=== PATIENT | female | born 1955 | race American Indian/Alaskan Native ===

== ENCOUNTER 2020-05-29 19:14 | Observation (INO) | payer MEDICARE, OTHER ==
--- NOTE | 2020-05-29 20:57 | Emergency Department Report ---
ED Fall HPI - General Chief Complaint: Neuro Symptoms/Deficit Stated Complaint: ALTERED MENTAL STATUS/WEAK Time Seen by Provider: 05/29/20 20:21 Source: patient, EMS Mode of arrival: Stretcher Limitations: No Limitations - History of Present Illness Initial Comments: 64-year-old female the past medical history of lung cancer, COPD, CVA March 2020, diabetes, and hypertension presents to the hospital status post fall. Patient is sleeping but easily arousable and somewhat drowsy however she is oriented to person, place, and year. She states around 2 AM she fell going down the stairs was able to get herself up off the ground. She states she hit her head but denies LOC. Patient lives with her daughter. From reports to EMS that they are concerned because patient is asking repetitive questions. Patient is AO x4 with EMS. Patient complains of some mild neck pain and right hand/wrist pain. She also had 2-3 episodes of vomiting. She denies headache, chest pain, shortness breath, abdominal pain, diarrhea, or dysuria - Related Data Allergies Allergy/AdvReac Type Severity Reaction Status Date / Time Sulfa (Sulfonamide AdvReac Unknown Verified 05/29/20 20:47 Antibiotics) ED Review of Systems ROS: Stated complaint: ALTERED MENTAL STATUS/WEAK Other details as noted in HPI Comment: All other systems reviewed and negative ED Past Medical Hx - Past Medical History Previous Medical History?: Yes Hx Hypertension: Yes Hx CVA: Yes (march 2020) Hx Diabetes: Yes Hx of Cancer: Yes (lung) Hx COPD: Yes - Surgical History Past Surgical History?: Yes Additional Surgical History: renal surgery, cyst removal, hysterectomy. - Social History Smoking Status: Current Every Day Smoker Substance Use Type: None ED Physical Exam - General Limitations: No Limitations - Other Other exam information: General: No acute distress Head: Atraumatic Eyes: normal appearance ENT: Moist mucous membranes Neck: Normal appearance, no midline tenderness Chest: Clear to auscultation bilaterally CV: Regular rate and rhythm Abdomen: Soft, normal bowel sounds, nontender, nondistended, no rebound or guarding Back: Normal inspection Extremity: Swelling to right thumb metacarpal area with tenderness to palpation. Mild swelling to wrist but full range of motion 2+ radial pulse. Mild pain with flexion of right knee without point tenderness or deformity. No pain with movement of all other extremities Neuro: Patient is drowsy but easily arousable O x 3, no facial asymmetry, speech clear, no gross motor sensory deficit Psych: Patient is drowsy states she does not sleep much at night and therefore is sleepy Skin: No rash ED Course Vital Signs 05/29/20 19:41 Temperature 98.2 F Pulse Rate 79 Respiratory 18 Rate Blood Pressure 164/87 [left a5rm] O2 Sat by Pulse 100 Oximetry - Reevaluation(s) Reevaluation #1: 05/30/20 00:16 Patient is ED work-up unremarkable with inspection of right hand fracture. I called daughter Siena Gracia at [phone] (number provided by patient) who expresses concern that patient has had a decline in mobility and mental status x1 day. Daughter did not initially realize that patient had fallen earlier but did see worsening gait. She states that patient at her baseline walks around her house without a walker and intermittently uses a walker or object to balance herself. Today she was completely unsteady and needed total support to ambulate which has been witnessed here in the ED. She also states that her mother's speech is more slow and slurred than normal. She also states that patient has been noncompliant with her medications. Patient apparently underplays her physical complaints and always tells everyone including physicians that she feels fine and is not forthcoming with her medical complaints. Initially thought that patient might be a candidate for discharge however, with this new information I will consult neurology to assess patient. CT does show several old infarcts without acute hemorrhage. Patient might require admission and further neurologic work-up. She is nonfocal on exam. pt has hx of march 2020 and march 2019 but deficits unclear as per daughter - Consultations Consultation #1: 05/30/20 00:[address] Jaffe teleneurologist who states pt does not meet criteria for acute intervention however, patient has multiple chronic infarcts on CT it is unclear if patient had a had an acute event therefore recommends MRI and physical therapy assessment. ED Medical Decision Making - Lab Data Result diagrams: 05/29/20 21:52 05/29/20 21:52 Lab Results 05/29/20 05/29/20 05/29/20 Range/Units 21:25 21:52 21:52 WBC 8.3 (4.5-11.0) K/mm3 RBC 4.42 (3.65-5.03) M/mm3 Hgb 13.5 (10.1-14.3) gm/dl Hct 43.6 H (30.3-42.9) % MCV 99 H (79-97) fl MCH 31 (28-32) pg MCHC 31 (30-34) % RDW 16.4 H (13.2-15.2) % Plt Count 144 (140-440) K/mm3 Lymph % (Auto) Insurance Policy Issue Clerk [place] % (Auto) Insurance Policy Issue Clerk Eos % (Auto) Insurance Policy Issue Clerk Baso % (Auto) Insurance Policy Issue Clerk Lymph # (Auto) Insurance Policy Issue Clerk [place] # (Auto) Insurance Policy Issue Clerk Eos # (Auto) Insurance Policy Issue Clerk Baso # (Auto) Insurance Policy Issue Clerk Seg Neutrophils % Insurance Policy Issue Clerk Seg Neutrophils # Insurance Policy Issue Clerk Sodium 141 (137-145) mmol/L Potassium 4.8 (3.6-5.0) mmol/L Chloride 103.5 (98-107) mmol/L Carbon Dioxide 20 L (22-30) mmol/L Anion Gap 22 mmol/L BUN 17 (7-17) mg/dL Creatinine 0.8 (0.6-1.2) mg/dL Estimated GFR > 60 ml/min BUN/Creatinine Ratio 21 % Glucose 171 H (65-100) mg/dL POC Glucose 186 H (70-105) mg/dL Calcium 9.4 (8.4-10.2) mg/dL Magnesium 1.90 (1.7-2.3) mg/dL Total Bilirubin 0.60 (0.1-1.2) mg/dL AST 24 (5-40) units/L ALT 12 (7-56) units/L Alkaline Phosphatase 86 (35-129) units/L Total Protein 6.9 (6.3-8.2) g/dL Albumin 4.1 (3.9-5) g/dL Albumin/Globulin Ratio 1.5 % Urine Color (Yellow) Urine Turbidity (Clear) Urine pH (5.0-7.0) Ur Specific [place] (1.003-1.030) Urine Protein (Negative) mg/dL Urine Glucose (UA) (Negative) mg/dL Urine Ketones (Negative) mg/dL Urine Blood (Negative) Urine Nitrite (Negative) Urine Bilirubin (Negative) Urine Urobilinogen (<2.0) mg/dL Ur Leukocyte Esterase (Negative) Urine WBC (Auto) (0.0-6.0) /HPF Urine RBC (Auto) (0.0-6.0) /HPF U Epithel Cells (Auto) (0-13.0) /HPF Urine Mucus /HPF 05/29/20 Range/Units 23:02 WBC (4.5-11.0) K/mm3 RBC (3.65-5.03) M/mm3 Hgb (10.1-14.3) gm/dl Hct (30.3-42.9) % MCV (79-97) fl MCH (28-32) pg MCHC (30-34) % RDW (13.2-15.2) % Plt Count (140-440) K/mm3 Lymph % (Auto) [place] % (Auto) Eos % (Auto) Baso % (Auto) Lymph # (Auto) [place] # (Auto) Eos # (Auto) Baso # (Auto) Seg Neutrophils % Seg Neutrophils # Sodium (137-145) mmol/L Potassium (3.6-5.0) mmol/L Chloride (98-107) mmol/L Carbon Dioxide (22-30) mmol/L Anion Gap mmol/L BUN (7-17) mg/dL Creatinine (0.6-1.2) mg/dL Estimated GFR ml/min BUN/Creatinine Ratio % Glucose (65-100) mg/dL POC Glucose (70-105) mg/dL Calcium (8.4-10.2) mg/dL Magnesium (1.7-2.3) mg/dL Total Bilirubin (0.1-1.2) mg/dL AST (5-40) units/L ALT (7-56) units/L Alkaline Phosphatase (35-129) units/L Total Protein (6.3-8.2) g/dL Albumin (3.9-5) g/dL Albumin/Globulin Ratio % Urine Color Yellow (Yellow) Urine Turbidity Clear (Clear) Urine pH 5.0 (5.0-7.0) Ur Specific [place] 1.029 (1.003-1.030) Urine Protein 30 mg/dl (Negative) mg/dL Urine Glucose (UA) 150 (Negative) mg/dL Urine Ketones Neg (Negative) mg/dL Urine Blood Sm (Negative) Urine Nitrite Neg (Negative) Urine Bilirubin Neg (Negative) Urine Urobilinogen 2.0 (<2.0) mg/dL Ur Leukocyte Esterase Neg (Negative) Urine WBC (Auto) 1.0 (0.0-6.0) /HPF Urine RBC (Auto) 2.0 (0.0-6.0) /HPF U Epithel Cells (Auto) 4.0 (0-13.0) /HPF Urine Mucus 2+ /HPF - EKG Data -: EKG Interpreted by [facility] EKG shows normal: sinus rhythm, ST-T waves (normal) Rate: normal - Radiology Data Radiology results: report reviewed CT head/brain wo con INDICATION: Patient had a fall with neck injury. TECHNIQUE: Routine CT head without contrast. All CT scans at this location are performed using CT dose reduction for ALARA by means of automated exposure control. COMPARISON: None. FINDINGS: BRAIN / INTRACRANIAL CONTENTS: Generalized cerebral volume loss with compensatory enlargement of the ventricles and sulci. There are bilateral basal ganglia and external capsule hypodensities measuring up to 1.5 cm adjacent to the left caudate. Findings possibly represent age-indeterminate lacunar type infarcts. Periventricular hypoattenuation suggests sequela of chronic microvascular ischemia. No acute major vascular distribution infarct, intraparenchymal hemorrhage, or parenchymal mass. No extra-axial blood or fluid collection. No evidence of acute obstructive hydrocephalus. ORBITS: No significant abnormality of visualized orbits. SINUSES / MASTOIDS: No significant abnormality of visualized sinuses and mastoid air cells. ADDITIONAL FINDINGS: Mild soft tissue induration adjacent to the left temporal calvarium. No calvarial fracture. IMPRESSION: 1. No acute intracranial abnormality. 2. Generalized cerebral volume loss and sequela of chronic microvascular ischemia. 3. Age-indeterminate lacunar-type infarcts in the bilateral basal ganglia, worse on the left. Consider further evaluation with MRI as warranted. CT CERVICAL SPINE WITHOUT CONTRAST INDICATION / CLINICAL INFORMATION: Patient had a fall with head injury. TECHNIQUE: Axial CT images of the spine were obtained. Sagittal and coronal reformatted images were produced. All CT scans at this location are performed using CT dose reduction for ALARA by means of automated exposure control. COMPARISON: CT head 05/29/2020 FINDINGS: Acute Fracture(s) or Subluxation: None. Spinal Degenerative Changes: Diffuse spondylosis with straightening of the normal cervical lordosis. Uncovertebral spurring and degenerative arthrosis of the facet joints contributes to moderate-severe neural foraminal narrowing at C3-4 on the right and there is no high-grade neural foraminal narrowing on the left. Prominent posterior disc protrusion is present at C3-4 resulting in likely mild spinal canal stenosis. No significant stenosis visualized throughout the remaining spinal canal. Paraspinal soft tissues: Mildly prominent right parotid gland without focal lesion. Left parotid gland is not visualized for comparative symmetry. Additional Findings: No significant additional findings. IMPRESSION: 1. No fracture or traumatic malalignment. 2. Cervical spondylosis with moderate-severe neural foraminal narrowing on the right at C3-4. Posterior disc protrusion at C3-4 contributes to mild spinal canal narrowing. Consider further evaluation with MRI as warranted. RIGHT KNEE 3 VIEW(S) INDICATION / CLINICAL INFORMATION: fall, pain COMPARISON: None available. FINDINGS: BONES / JOINT(S): No acute fracture or subluxation. Mild degenerative change. SOFT TISSUES: No significant abnormality. ADDITIONAL FINDINGS: None. RIGHT WRIST 3 VIEW(S) INDICATION / CLINICAL INFORMATION: fall, right hand pain COMPARISON: Hand radiograph 05/29/2020 FINDINGS: BONES / JOINT(S): Focal cortical irregularity at the base of the first metacarpal possibly representing acute nondisplaced fracture. Mild-moderate degenerative change worst at the first carpal metacarpal joint. SOFT TISSUES: No significant abnormality. ADDITIONAL FINDINGS: None. RIGHT HAND 3 VIEW(S) INDICATION / CLINICAL INFORMATION: fall right, hand pain COMPARISON: Wrist radiograph 05/29/2020 FINDINGS: BONES / JOINT(S): Small focal cortical irregularity at the base of the first metacarpal possibly representing acute nondisplaced fracture. Mild-moderate degenerative change worst at the first carpal metacarpal joint. SOFT TISSUES: No significant abnormality. - Medical Decision Making Patient presents to the ED status post fall. Patient has a right hand fracture and placed in thumb spica wrist splint. daughter expresses concerns for a new neurologic event due to worsening unsteady gait, diminished speech, and increased confusion. No acute deficits identified on examination however, patient requires a lot of support with ambulation above her baseline. Patient also has mild slurred speech but apparently has a history that is well as per daughter. Patient apparently has history of stroke in March as well as March last year however, she has no previous medical record here available for review to provide details. CT today shows multiple chronic infarcts. Case discussed with neurology recommends admission for further work-up to rule out acute event as well as physical therapy assessment. Critical Care Time: No Critical care attestation.: If time is entered above; I have spent that time in minutes in the direct care of this critically ill patient, excluding procedure time. ED Disposition Clinical Impression: Stroke, Fall, Unsteady gait when walking, Diabetes, Hypertension, Right hand fracture Disposition: OP ADMIT IP TO THIS HOSP Is pt being admited?: Yes Condition: Stable Referrals: PRIMARY CARE, [Primary Care Provider] - 3-5 Days Time of Disposition: 00:53 (Dr Anne/hosp) - Assessment Assessment Interval: Baseline - Level of Consciousness 1a. Level of Consciousness: alert/keenly responsive - LOC Questions 1b. LOC Questions: answers both correctly - LOC Command 1c. LOC Commands: performs tasks correctly - Best Gaze 2. Best Gaze: normal - Visual 3. Visual: no visual loss - Facial Palsy 4. Facial Palsy: normal symmetrical movement - Motor Arm 5a. Motor Arm Left: no drift 5b. Motor Arm Right: no drift - Motor Leg 6a. Motor Leg Left: no drift 6b. Motor Leg Right: no drift - Limb Ataxia 7. Limb Ataxia: absent - Sensory 8. Sensory: normal - Best Language 9. Best Language: no aphasia - Dysarthria 10. Dysarthria: normal - Extinction and Inattention 11. Extinction/Inattention: no abnormality - Scoring Total Score: 0 Stroke Severity: No Stroke Symptoms
--- NOTE | 2020-05-29 22:08 | XRay Report ---
RIGHT KNEE 3 VIEW(S) INDICATION / CLINICAL INFORMATION: fall, pain COMPARISON: None available. FINDINGS: BONES / JOINT(S): No acute fracture or subluxation. Mild degenerative change. SOFT TISSUES: No significant abnormality. ADDITIONAL FINDINGS: None. Signer Name: Yunier Savage MD Signed: 05/29/2020 10:03 PM Workstation Name: [id number]
--- NOTE | 2020-05-29 22:10 | XRay Report ---
RIGHT HAND 3 VIEW(S) INDICATION / CLINICAL INFORMATION: fall right, hand pain COMPARISON: Wrist radiograph 05/29/2020 FINDINGS: BONES / JOINT(S): Small focal cortical irregularity at the base of the first metacarpal possibly repr esenting acute nondisplaced fracture. Mild-moderate degenerative change worst at the first carpal met acarpal joint. SOFT TISSUES: No significant abnormality. ADDITIONAL FINDINGS: None. Signer Name: Yunier Savage MD Signed: 05/29/2020 10:05 PM Workstation Name: [id number]
--- NOTE | 2020-05-29 22:11 | XRay Report ---
RIGHT WRIST 3 VIEW(S) INDICATION / CLINICAL INFORMATION: fall, right hand pain COMPARISON: Hand radiograph 05/29/2020 FINDINGS: BONES / JOINT(S): Focal cortical irregularity at the base of the first metacarpal possibly representi ng acute nondisplaced fracture. Mild-moderate degenerative change worst at the first carpal metacarpa l joint. SOFT TISSUES: No significant abnormality. ADDITIONAL FINDINGS: None. Signer Name: Yunier Savage MD Signed: 05/29/2020 10:06 PM Workstation Name: [id number]
--- NOTE | 2020-05-29 22:29 | Cat Scan Report ---
CT head/brain wo con INDICATION: Patient had a fall with neck injury. TECHNIQUE: Routine CT head without contrast. All CT scans at this location are performed using CT dos e reduction for ALARA by means of automated exposure control. COMPARISON: None. FINDINGS: BRAIN / INTRACRANIAL CONTENTS: Generalized cerebral volume loss with compensatory enlargement of the ventricles and sulci. There are bilateral basal ganglia and external capsule hypodensities measuring up to 1.5 cm adjacent to the left caudate. Findings possibly represent age-indeterminate lacunar type infarcts. Periventricular hypoattenuation suggests sequela of chronic microvascular ischemia. No acu te major vascular distribution infarct, intraparenchymal hemorrhage, or parenchymal mass. No extra-ax ial blood or fluid collection. No evidence of acute obstructive hydrocephalus. ORBITS: No significant abnormality of visualized orbits. SINUSES / MASTOIDS: No significant abnormality of visualized sinuses and mastoid air cells. ADDITIONAL FINDINGS: Mild soft tissue induration adjacent to the left temporal calvarium. No calvaria l fracture. IMPRESSION: 1. No acute intracranial abnormality. 2. Generalized cerebral volume loss and sequela of chronic microvascular ischemia. 3. Age-indeterminate lacunar-type infarcts in the bilateral basal ganglia, worse on the left. Conside r further evaluation with MRI as warranted. Signer Name: Yunier Savage MD Signed: 05/29/2020 10:24 PM Workstation Name: [id number]
--- NOTE | 2020-05-29 22:34 | Cat Scan Report ---
CT CERVICAL SPINE WITHOUT CONTRAST INDICATION / CLINICAL INFORMATION: Patient had a fall with head injury. TECHNIQUE: Axial CT images of the spine were obtained. Sagittal and coronal reformatted images were produced. Al l CT scans at this location are performed using CT dose reduction for ALARA by means of automated exp osure control. COMPARISON: CT head 05/29/2020 FINDINGS: Acute Fracture(s) or Subluxation: None. Spinal Degenerative Changes: Diffuse spondylosis with straightening of the normal cervical lordosis. Uncovertebral spurring and degenerative arthrosis of the facet joints contributes to moderate-severe neural foraminal narrowing at C3-4 on the right and there is no high-grade neural foraminal narrowing on the left. Prominent posterior disc protrusion is present at C3-4 resulting in likely mild spinal canal stenosis. No significant stenosis visualized throughout the remaining spinal canal. Paraspinal soft tissues: Mildly prominent right parotid gland without focal lesion. Left parotid glan d is not visualized for comparative symmetry. Additional Findings: No significant additional findings. IMPRESSION: 1. No fracture or traumatic malalignment. 2. Cervical spondylosis with moderate-severe neural foraminal narrowing on the right at C3-4. Posteri or disc protrusion at C3-4 contributes to mild spinal canal narrowing. Consider further evaluation wi MRI as warranted. Signer Name: Yunier Savage MD Signed: 05/29/2020 10:29 PM Workstation Name: [id number]
[2020-05-29 22:36] LABS: Alanine Aminotransferase 12 units/L (7-56); Albumin 4.1 g/dL (3.9-5); BUN/Creatinine Ratio 21; Blood Urea Nitrogen 17 mg/dL (7-17); Calcium 9.4 mg/dL (8.4-10.2); Hemolysis Index 115
[2020-05-29 22:41] LABS: Hematocrit 43.6 % (30.3-42.9); Hemoglobin 13.5 gm/dl (10.1-14.3); Mean Corpuscular HGB Conc 31 % (30-34); Mean Corpuscular Volume 99 fl (79-97); Platelet Count 144 K/mm3 (140-440); Red Blood Count 4.42 M/mm3 (3.65-5.03); Red Cell Distribution Width 16.4 % (13.2-15.2)
[2020-05-29 23:31] LABS: Bilirubin,Urine NEG (Negative); Blood,Urine SM (Negative); Color,Urine Yellow (Yellow); Mucus,Urine 2+ /HPF
--- NOTE | 2020-05-30 00:44 | Emergency Department Report ---
ED Neuro Deficit HPI - General Chief Complaint: Neuro Symptoms/Deficit Stated Complaint: ALTERED MENTAL STATUS/WEAK Time Seen by Provider: 05/29/20 20:21 Source: patient, EMS Mode of arrival: Stretcher Limitations: No Limitations - History of Present Illness Initial Comments: [facility] TeleNeurology Consult Services Stat Consult Date of Service: 05/30/2020 00:18:26 Impression: Rule Out Acute Ischemic Stroke Comments/Sign-Out: Patient has had multiple strokes in the past based on imaging studies. Timing on these is unknown. It is possible she had another lacunar infarct so she needs to have an MRI the brain morning. She will need better blood pressure control and she obviously should stop smoking. She's in A1c and a fasting lipid profile. Physical therapy to see. CT HEAD: Showed No Acute Hemorrhage or Acute Core Infarct Reviewed Extensive small vessel disease with old lacunar infarctions in the right madie, both cerebellar hemispheres, bilateral basal ganglia Metrics: [facility] Notification Time: 05/30/2020 00:18:26 Stamp Time: 05/30/2020 00:18:26 Video Start Time: 05/30/2020 00:25:33 Video End Time: 05/30/2020 00:34:00 Our recommendations are outlined below. Recommendations: Initiate Aspirin 81 MG Daily Imaging Studies: MRI Head Carotid Dopplers Echocardiogram - Transthoracic Echocardiogram Therapies: Physical Therapy, Occupational Therapy, Speech Therapy Assessment When Applicable Disposition: Neurology Follow Up Recommended Sign Out: Discussed with Emergency Department Provider Chief Complaint: Increase trouble walking History of Present Illness: Patient is a 64 year old Female. This is a 64-year-old woman who doesn't offer much information but she apparently fell at home today suffer fracture, nondisplaced, right first metacar pal. The daughter reported to the emergency department physician that she was speaking repetitively but when she arrived at the emergency department she was alert and well oriented. She has a walker but is able to walk independently and suddenly she is having worse trouble with her walker possibly because of loss of balance. In addition to risk factors below she is 1/2 pack per day smoker. Noting multiple strokes on imaging is not clear if they were symptomatic. Medications unknown Past Medical History: Hypertension Diabetes Mellitus Stroke There is NO history of Hyperlipidemia There is NO history of Atrial Fibrillation There is NO history of Coronary Artery Disease Anticoagulant use: No Antiplatelet use: No Examination: BP(164/87), Pulse(79), Blood Glucose(171) 1A: Level of Consciousness - Alert; keenly responsive + 0 1B: Ask Month and Age - Both Questions Right + 0 1C: Blink Eyes & Squeeze Hands - Performs Both Tasks + 0 2: Test Horizontal Extraocular Movements - Normal + 0 3: Test Visual [place] - No Visual Loss + 0 4: Test Facial Palsy (Use Grimace if Obtunded) - Normal symmetry + 0 5A: Test Left Arm Motor Drift - No Drift for 10 Seconds + 0 5B: Test Right Arm Motor Drift - No Drift for 10 Seconds + 0 6A: Test Left Leg Motor Drift - No Drift for 5 Seconds + 0 6B: Test Right Leg Motor Drift - No Drift for 5 Seconds + 0 7: Test Limb Ataxia (FNF/Heel-Matos) - No Ataxia + 0 8: Test Sensation - Normal; No sensory loss + 0 9: Test Language/Aphasia - Normal; No aphasia + 0 10: Test Dysarthria - Normal + 0 11: Test Extinction/Inattention - No abnormality + 0 NIHSS Score: 0 Patient/Family was informed the Neurology Consult would happen via TeleHealth consult by way of interactive audio and video telecommunications and consented to receiving care in this manner. Due to the immediate potential for life-threatening deterioration due to underlying acute neurologic illness, I spent 18 minutes providing critical care. This time includes time for face to face visit via telemedicine, review of medical records, imaging studies and discussion of findings with providers, the patient and/or family. Dr Liam Jaffe [facility] Case [id number] -: This morning Location: other Presenting Symptoms: Present: Altered Mental Status History of same: No Place: home - Related Data Allergies/Adverse Reactions: Allergies Allergy/AdvReac Type Severity Reaction Status Date / Time Sulfa (Sulfonamide AdvReac Unknown Verified 10/21/20 20:47 Antibiotics) ED Review of Systems ROS: Stated complaint: ALTERED MENTAL STATUS/WEAK Other details as noted in HPI ED Past Medical Hx - Past Medical History Previous Medical History?: Yes Hx Hypertension: Yes Hx CVA: Yes (march 2020) Hx Diabetes: Yes Hx of Cancer: Yes (lung) Hx COPD: Yes - Surgical History Past Surgical History?: Yes Additional Surgical History: renal surgery, cyst removal, hysterectomy. - Social History Smoking Status: Current Every Day Smoker Substance Use Type: None ED Neuro Physical Exam - General Limitations: No Limitations General appearance: in no apparent distress Suspected Stroke: Yes - NIHSS Assessment Interval: Baseline 1a. Level of Consciousness: alert/keenly responsive 1b. LOC Questions: answers both correctly 1c. LOC Commands: performs tasks correctly 2. Best Gaze: normal 3. Visual: no visual loss 4. Facial Palsy: normal symmetrical movement 5b. Motor Arm Right: no drift 5a. Motor Arm Left: no drift 6a. Motor Leg Left: no drift 6b. Motor Leg Right: no drift 7. Limb Ataxia: absent 8. Sensory: normal 9. Best Language: no aphasia 10. Dysarthria: normal 11. Extinction/Inattention: no abnormality Total Score: 0 Stroke Severity: No Stroke Symptoms ED Course Vital Signs 05/29/20 19:41 Temperature 98.2 F Pulse Rate 79 Respiratory 18 Rate Blood Pressure 164/87 [left a5rm] O2 Sat by Pulse 100 Oximetry - Lab Data Result diagrams: 05/29/20 21:52 05/29/20 21:52 Lab Results 05/29/20 05/29/20 05/29/20 Range/Units 21:25 21:52 21:52 WBC 8.3 (4.5-11.0) K/mm3 RBC 4.42 (3.65-5.03) M/mm3 Hgb 13.5 (10.1-14.3) gm/dl Hct 43.6 H (30.3-42.9) % MCV 99 H (79-97) fl MCH 31 (28-32) pg MCHC 31 (30-34) % RDW 16.4 H (13.2-15.2) % Plt Count 144 (140-440) K/mm3 Lymph % (Auto) [place] % (Auto) [facility] [facility] Eos % (Auto) [place] Baso % (Auto) [place] Lymph # (Auto) [place] # (Auto) [place] Eos # (Auto) [place] Baso # (Auto) [place] Seg Neutrophils % [place] Seg Neutrophils # [place] Sodium 141 (137-145) mmol/L Potassium 4.8 (3.6-5.0) mmol/L Chloride 103.5 (98-107) mmol/L Carbon Dioxide 20 L (22-30) mmol/L Anion Gap 22 mmol/L BUN 17 (7-17) mg/dL Creatinine 0.8 (0.6-1.2) mg/dL Estimated GFR > 60 ml/min BUN/Creatinine Ratio 21 % Glucose 171 H (65-100) mg/dL POC Glucose 186 H (70-105) mg/dL Calcium 9.4 (8.4-10.2) mg/dL Magnesium 1.90 (1.7-2.3) mg/dL Total Bilirubin 0.60 (0.1-1.2) mg/dL AST 24 (5-40) units/L ALT 12 (7-56) units/L Alkaline Phosphatase 86 (35-129) units/L Total Protein 6.9 (6.3-8.2) g/dL Albumin 4.1 (3.9-5) g/dL Albumin/Globulin Ratio 1.5 % Urine Color (Yellow) Urine Turbidity (Clear) Urine pH (5.0-7.0) Ur Specific Wallace (1.003-1.030) Urine Protein (Negative) mg/dL Urine Glucose (UA) (Negative) mg/dL Urine Ketones (Negative) mg/dL Urine Blood (Negative) Urine Nitrite (Negative) Urine Bilirubin (Negative) Urine Urobilinogen (<2.0) mg/dL Ur Leukocyte Esterase (Negative) Urine WBC (Auto) (0.0-6.0) /HPF Urine RBC (Auto) (0.0-6.0) /HPF U Epithel Cells (Auto) (0-13.0) /HPF Urine Mucus /HPF 05/29/20 Range/Units 23:02 WBC (4.5-11.0) K/mm3 RBC (3.65-5.03) M/mm3 Hgb (10.1-14.3) gm/dl Hct (30.3-42.9) % MCV (79-97) fl MCH (28-32) pg MCHC (30-34) % RDW (13.2-15.2) % Plt Count (140-440) K/mm3 Lymph % (Auto) [place] % (Auto) Eos % (Auto) Baso % (Auto) Lymph # (Auto) [place] # (Auto) Eos # (Auto) Baso # (Auto) Seg Neutrophils % Seg Neutrophils # Sodium (137-145) mmol/L Potassium (3.6-5.0) mmol/L Chloride (98-107) mmol/L Carbon Dioxide (22-30) mmol/L Anion Gap mmol/L BUN (7-17) mg/dL Creatinine (0.6-1.2) mg/dL Estimated GFR ml/min BUN/Creatinine Ratio % Glucose (65-100) mg/dL POC Glucose (70-105) mg/dL Calcium (8.4-10.2) mg/dL Magnesium (1.7-2.3) mg/dL Total Bilirubin (0.1-1.2) mg/dL AST (5-40) units/L ALT (7-56) units/L Alkaline Phosphatase (35-129) units/L Total Protein (6.3-8.2) g/dL Albumin (3.9-5) g/dL Albumin/Globulin Ratio % Urine Color Yellow (Yellow) Urine Turbidity Clear (Clear) Urine pH 5.0 (5.0-7.0) Ur Specific Wallace 1.029 (1.003-1.030) Urine Protein 30 mg/dl (Negative) mg/dL Urine Glucose (UA) 150 (Negative) mg/dL Urine Ketones Neg (Negative) mg/dL Urine Blood Sm (Negative) Urine Nitrite Neg (Negative) Urine Bilirubin Neg (Negative) Urine Urobilinogen 2.0 (<2.0) mg/dL Ur Leukocyte Esterase Neg (Negative) Urine WBC (Auto) 1.0 (0.0-6.0) /HPF Urine RBC (Auto) 2.0 (0.0-6.0) /HPF U Epithel Cells (Auto) 4.0 (0-13.0) /HPF Urine Mucus 2+ /HPF Critical care attestation.: If time is entered above; I have spent that time in minutes in the direct care of this critically ill patient, excluding procedure time. ED Disposition Clinical Impression: Stroke Disposition: DC-09 OP ADMIT IP TO THIS HOSP Is pt being admited?: Yes Does the pt Need Aspirin: Yes Condition: Stable Referrals: PRIMARY CARE,MD [Primary Care Provider] - 3-5 Days
[2020-05-30] MEDS ORDERED: ASPIRIN 325 MG TAB PO ONE (00:58)
[2020-05-30] MEDS ORDERED: ONDANSETRON 4 MG/2 ML INJ IV PRN ×2 (01:16)
[2020-05-30] MEDS ORDERED: DEXTROSE 50% IN WATER (25GM) 50 ML SYRINGE IV PRN (01:16)
[2020-05-30] MEDS ORDERED: ACETAMINOPHEN 325 MG TAB PO PRN ×2 (01:16)
[2020-05-30] MEDS ORDERED: METOCLOPRAMIDE 10 MG TAB PO PRN (01:16)
[2020-05-30] MEDS ORDERED: MAGNESIUM HYDROXIDE (MOM) ORAL LIQD UDC PO PRN ×2 (01:16→01:30)
[2020-05-30] MEDS ORDERED: PROMETHAZINE 25 MG RECT SUPP PR PRN (01:16)
[2020-05-30] MEDS ORDERED: MORPHINE 2 MG/1 ML INJ IV PRN (01:30)
--- NOTE | 2020-05-30 01:52 | History and Physical Report ---
History of Present Illness Date of examination: 05/30/20 Date of admission: 05/30/2020 Chief complaint: Unsteady gait Fall History of present illness: 64-year-old female with known history of COPD, history of CVA in the past, history of lung cancer, diabetes mellitus and hypertension presenting to the emergency room today complaining of unsteady gait thereafter resulting in a fall. Patient indicates that she fell up the stairs at about 2 AM today and indicates that she hit her head but denies any headache or loss of consciousness. Upon arrival in the emergency room patient complained of mild neck pain on right hand/wrist pain. She denies any chest pain or shortness of breath, denies any headache or dizziness, no diarrhea, no hematuria or dysuria. Patient had an episode of vomiting . Work-up in the emergency room reveals possible nondisplaced fracture on the fourth metacarpal of the right hand. CT scan of the head and cervical spine has been unremarkable. Patient being admitted for work-up for possible CVA. Past History Past Medical History: COPD, other (H/O lung Ca,CKD) Past Surgical History: hysterectomy, Other (Cyst rempoval) Social history: smoking (Current daily smoker) Family history: no significant family history Medications and Allergies Allergies Allergy/AdvReac Type Severity Reaction Status Date / Time Sulfa (Sulfonamide AdvReac Unknown Verified 05/29/20 20:47 Antibiotics) Home Medications Medication Instructions Recorded Confirmed Last Taken Type Glimepiride [Amaryl] 2 mg PO QDAY 05/30/20 05/30/20 Unknown History Insulin Glargine [Lantus VIAL] 0 units SUB-Q QHS 05/30/20 05/30/20 Unknown History Insulin Regular, Human [Humulin R] SUB-Q UNK 05/30/20 Unknown History Metoprolol [Lopressor] 25 mg PO QDAY 05/30/20 05/30/20 Unknown History Triamterene [Dyrenium] 25 mg PO QDAY 05/30/20 05/30/20 Unknown History glipiZIDE [Glucotrol] 5 mg PO TID 05/30/20 05/30/20 Unknown History traZODone [Desyrel] 50 mg PO QHS 05/30/20 05/30/20 Unknown History Active Meds: Active Medications Acetaminophen (Tylenol) 650 mg PO Q4H PRN PRN Reason: Pain MILD(1-3)/Fever >100.5/DENT Acetaminophen (Tylenol) 650 mg PO Q4H PRN PRN Reason: Pain, Mild (1-3) Aspirin (Aspirin) 325 mg PO QDAY [facility] Atorvastatin Calcium (Lipitor) 40 mg PO QHS [facility] Bisacodyl (Dulcolax) 10 mg DC QDAY PRN PRN Reason: Constipation Dextrose (D50w (25gm) Syringe) 50 ml IV Q30MIN PRN; Protocol PRN Reason: Hypoglycemia Insulin Human Lispro (Humalog) 0 unit SUB-Q ACHS [facility]; Protocol Magnesium Hydroxide (Milk Of Magnesia) 30 ml PO Q4H PRN PRN Reason: Constipation Magnesium Hydroxide (Milk Of Magnesia) 30 ml PO Q4H PRN PRN Reason: Constipation Metoclopramide HCl (Reglan) 10 mg PO Q6H PRN PRN Reason: Nausea And Vomiting Morphine Sulfate (Morphine) 2 mg IV Q4H PRN PRN Reason: Pain, Moderate (4-6) Ondansetron HCl (Zofran) 4 mg IV Q8H PRN PRN Reason: Nausea And Vomiting Ondansetron HCl (Zofran) 4 mg IV Q8H PRN PRN Reason: Nausea And Vomiting Promethazine HCl (Phenergan) 25 mg DC Q6H PRN PRN Reason: Nausea And Vomiting Sodium Chloride (Sodium Chloride Flush Syringe 10 Ml) 10 ml IV BID [facility] Sodium Chloride (Sodium Chloride Flush Syringe 10 Ml) 10 ml IV PRN PRN PRN Reason: LINE FLUSH Sodium Chloride (Sodium Chloride Flush Syringe 10 Ml) 10 ml INJ PRN PRN PRN Reason: LINE FLUSH Review of Systems Constitutional: no fever, no chills Ears, nose, mouth and throat: no nasal congestion, no sore throat Cardiovascular: no chest pain, no palpitations Respiratory: no cough, no shortness of breath Gastrointestinal: no abdominal pain, no nausea, no vomiting, no diarrhea Genitourinary Female: no pelvic pain, no flank pain, no dysuria, no hematuria Musculoskeletal: no neck pain, no low back pain Integumentary: no rash, no pruritis Neurological: gait dysfunction, other (Fall), no headaches, no confusion Psychiatric: no anxiety, no depression Exam - Constitutional Vitals: Temp Pulse Resp BP Pulse Ox 98.2 F 79 18 164/87 100 05/29/20 19:41 05/29/20 19:41 05/29/20 19:41 05/29/20 19:41 05/29/20 19:41 General appearance: Present: no acute distress, well-nourished - EENT Eyes: Present: PERRL, EOM intact, scleral icterus ENT: hearing intact, clear oral mucosa, dentition normal - Neck Neck: Present: supple, normal ROM - Respiratory Respiratory effort: normal Respiratory: bilateral: CTA - Cardiovascular Rhythm: regular Heart Sounds: Present: S1 & S2. Absent: gallop, systolic murmur, diastolic murmur, rub - Extremities Extremities: no ischemia, pulses intact, pulses symmetrical, No edema, Full ROM Peripheral Pulses: within normal limits - Abdominal General gastrointestinal: Present: soft, non-tender, non-distended, normal bowel sounds. Absent: mass - Integumentary Integumentary: Present: clear, warm, dry - Musculoskeletal Musculoskeletal: strength equal bilaterally - Psychiatric Psychiatric: appropriate mood/affect, intact judgment & insight, memory intact, cooperative - Neurologic Neurologic: CNII-XII intact, no focal deficits, moves all extremities Results - Labs CBC & Chem 7: 05/29/20 21:52 05/29/20 21:52 Labs: Abnormal lab results 05/29/20 05/29/20 05/29/20 Range/Units 21:25 21:52 21:52 Hct 43.6 H (30.3-42.9) % MCV 99 H (79-97) fl RDW 16.4 H (13.2-15.2) % Carbon Dioxide 20 L (22-30) mmol/L Glucose 171 H (65-100) mg/dL POC Glucose 186 H (70-105) mg/dL Assessment and Plan - Patient Problems (1) Unsteady gait when walking Current Visit: Yes Status: Acute Plan to address problem: We requests neurology evaluation and recommendation. We will also place consult to physical therapy for evaluation and management. (2) Stroke Current Visit: Yes Status: Acute Plan to address problem: Patient placed on daily aspirin and statin. We will schedule for carotid Doppler and MRI of the brain. We will request neurology evaluation. (3) Diabetes Current Visit: Yes Status: Acute (4) Fall Current Visit: Yes Status: Acute Plan to address problem: She will be placed on fall precautions. (5) Hypertension Current Visit: Yes Status: Acute Plan to address problem: Resume routine home medications and monitor vital signs closely. (6) Right hand fracture Current Visit: Yes Status: Acute Plan to address problem: Wrist placed in a sling. (7) DVT prophylaxis Current Visit: Yes Status: Acute Plan to address problem: Patient placed on subcu subcutaneous Lovenox. (8) Full code status Current Visit: Yes Status: Acute
--- NOTE | 2020-05-30 09:34 | Magnetic Resonance Report ---
MR brain wo con INDICATION / CLINICAL INFORMATION: Stroke. Unsteady gait TECHNIQUE: Multiplanar, multisequence MR images of the brain were obtained. COMPARISON: CT head 05/29/2020 FINDINGS: INTRACRANIAL: 2 small areas of punctate restricted diffusion seen within the left thalamus. Prior rem ote infarctions the cerebral hemispheres, madie, basal ganglia and tao radiata. There is associated hemosiderin within the left periventricular white matter and in the left cerebellum. No acute hemorr evelyn. Ventricular caliber is normal. No extra-axial collection. No mass. No herniation. Major intrac ranial vascular flow voids are preserved. ORBITS: No significant abnormality of visualized orbits. SINUSES / MASTOIDS: No significant abnormality of visualized sinuses and mastoid air cells. ADDITIONAL FINDINGS: None. IMPRESSION: 1. Acute infarctions in the left thalamus. Signer Name: Sai Dubon MD Signed: 05/30/2020 9:29 AM Workstation Name: [id number]
[2020-05-30] MEDS ORDERED: TRIAMTERENE 25 MG PO SCH (10:00)
[2020-05-30] MEDS: ASPIRIN 325 MG TAB PO SCH (11:24)
[2020-05-30] MEDS: METOPROLOL TARTRATE 25 MG TAB PO SCH (11:30)
[2020-05-30] MEDS: SPIRONOLACTONE 25 MG TAB PO SCH (11:30)
[2020-05-30] MEDS: INSULIN LISPRO 100 UNIT/ML VIAL 3 mL SUB-Q SCH ×4 (11:31→21:42)
--- NOTE | 2020-05-30 13:20 | Vascular Lab Report ---
Bilateral Carotid Doppler Ultrasound INDICATION : stroke, acute altered metal status, lung cancer history TECHNIQUE: Grayscale and color Doppler imaging performed through the neck. COMPARISON: None FINDINGS: Right: There is mild atherosclerotic disease in the carotid bulb extending into the proximal ICA. P eak systolic velocity in the CCA is 45 cm/s. Peak systolic velocity in the proximal ICA is 87 cm/s wi th end-diastolic velocity of 22 cm/s. ICA to CCA ratio is less than 2. There is antegrade flow in th e ECA and the vertebral artery. Left: There is no significant atherosclerotic disease. Peak systolic velocity in the CCA is 91 cm/s. Peak systolic velocity in the proximal ICA is 89 cm/s with end-diastolic velocity of 27 cm/s. ICA to CCA ratio is less than 2. There is antegrade flow in the ECA and the vertebral artery. IMPRESSION: No hemodynamically significant stenosis by NASCET criteria. Signer Name: Karel Dailey MD Signed: 05/30/2020 1:16 PM Workstation Name: [id number]
--- NOTE | 2020-05-30 14:23 | Consultation ---
History of Present Illness Consult date: 05/30/20 Requesting physician: MATT KAPLAN Reason for Consult: Rule out cva Chief complaint: I fell. History of present illness: 64 yo female with htn, dm, multiple strokes, hx of tobacco use, who fell ("down the stairs) at home on the day of admission and fractured her right first metacarpal but witnessed with perseveration of speech transiently and with a noted new unsteady gait with her walker. She notes that she is neurologically at her baseline. Past History Past Medical History: COPD, other (H/O lung Ca,CKD) Past Surgical History: hysterectomy, Other (Cyst rempoval) Social history: smoking (Current daily smoker) Family history: no significant family history Medications and Allergies Allergies Allergy/AdvReac Type Severity Reaction Status Date / Time Sulfa (Sulfonamide AdvReac Unknown Verified 05/29/20 20:47 Antibiotics) Home Medications Medication Instructions Recorded Confirmed Last Taken Type Glimepiride [Amaryl] 2 mg PO QDAY 05/30/20 05/30/20 Unknown History Insulin Glargine [Lantus VIAL] 0 units SUB-Q QHS 05/30/20 05/30/20 Unknown History Metoprolol [Lopressor] 25 mg PO QDAY 05/30/20 05/30/20 Unknown History Triamterene [Dyrenium] 25 mg PO QDAY 05/30/20 05/30/20 Unknown History glipiZIDE [Glucotrol] 5 mg PO TID 05/30/20 05/30/20 Unknown History traZODone [Desyrel] 50 mg PO QHS 05/30/20 05/30/20 Unknown History Active Meds: Active Medications Acetaminophen (Tylenol) 650 mg PO Q4H PRN PRN Reason: Pain MILD(1-3)/Fever >100.5/DENT Aspirin (Aspirin) 325 mg PO QDAY [facility] Last Admin: 05/30/20 11:24 Dose: 325 mg Documented by: Atorvastatin Calcium (Lipitor) 40 mg PO QHS [facility] Bisacodyl (Dulcolax) 10 mg MD QDAY PRN PRN Reason: Constipation Dextrose (D50w (25gm) Syringe) 0 ml IV Q30MIN PRN; Protocol PRN Reason: Hypoglycemia Enoxaparin Sodium (Enoxaparin) 40 mg SUB-Q QDAY@2200 [facility]; Protocol Insulin Human Lispro (Humalog) 0 unit SUB-Q ACHS [facility]; Protocol Last Admin: 05/30/20 11:32 Dose: Not Given Documented by: Magnesium Hydroxide (Milk Of Magnesia) 30 ml PO Q4H PRN PRN Reason: Constipation Metoclopramide HCl (Reglan) 10 mg PO Q6H PRN PRN Reason: Nausea And Vomiting Metoprolol Tartrate (Metoprolol) 25 mg PO QDAY [facility] Last Admin: 05/30/20 11:30 Dose: 25 mg Documented by: Morphine Sulfate (Morphine) 2 mg IV Q4H PRN PRN Reason: Pain, Moderate (4-6) Ondansetron HCl (Zofran) 4 mg IV Q8H PRN PRN Reason: Nausea And Vomiting Promethazine HCl (Phenergan) 25 mg MD Q6H PRN PRN Reason: Nausea And Vomiting Sodium Chloride (Sodium Chloride Flush Syringe 10 Ml) 10 ml IV BID [facility] Last Admin: 05/30/20 11:24 Dose: 10 ml Documented by: Sodium Chloride (Sodium Chloride Flush Syringe 10 Ml) 10 ml IV PRN PRN PRN Reason: LINE FLUSH Spironolactone (Aldactone) 25 mg PO QDAY [facility] Last Admin: 05/30/20 11:30 Dose: 25 mg Documented by: Trazodone HCl (Desyrel) 50 mg PO QHS [facility] Review of Systems All systems: negative (as per HPI;) Physical Examination - Vital Signs Vital Signs: Vital Signs Temp Pulse Resp BP Pulse Ox 98.2 F 79 18 164/87 100 05/29/20 19:41 05/29/20 19:41 05/29/20 19:41 05/29/20 19:41 05/29/20 19:41 - Additional Exam Additional Exam: Gen: nad, well-nourished; Head: normocephalic; Eyes: no gaze deviation; no ptosis; ENT: normal vocalization; CVS: warm and well-perfused; Pulm: no respiratory distress;; GI: non-distended, protuberant; Ext: no cyanosis or edema at distal extremities except Skin: no acute rash or hives at distal extremities; Heme: no pathologic bruising or ecchymosis at distal extremities; Neuro: alert, oriented to name, age, month, year, surroundings, no dysarthria, no aphasia, +psychomotor slowing; CN 2 - PERRL, visual aden intact, CN 3, 4, 6 - EOMI, CN 5 - facial sensation symmetric to light touch, CN 7 - facial movement symmetric, CN 8 - hearing grossly intact, CN 9, 10 - uvula midline, CN 11 - shrug symmetric, CN 12 - tongue midline; Motor - at least 3/5 in all exts (BUE drift; LLE drift) except right hand polisher dial at 3-/5; Sensory - light touch symmetric, Cerebellar - fnf /htsintact, Gait - deferred secondary to fall risk; NIHSS (1a.) Level of Consciousness:0 (1b.) LOC Questions:0 (1c.) LOC Commands:0 (2.) Best Gaze:0 (3.) Visual:0 (4.) Facial Palsy:0 (5a.) Motor Arm, Left:1 (5b.) Motor Arm, Right:1 (6a.) Motor Leg, Left:1 (6b.) Motor Leg, Right:0 (7.) Limb Ataxia:0 (8.) Sensory:0 (9.) Best Language:0 (10.) Dysarthria:1 (11.) Extinction and Inattention:0 NIHSS Total Score:4 Results - Laboratory Findings CBC and BMP: 05/29/20 21:52 05/29/20 21:52 Abnormal Lab Findings: Abnormal Labs 05/29/20 05/29/20 05/29/20 21:25 21:52 21:52 Hct 43.6 H MCV 99 H RDW 16.4 H Carbon Dioxide 20 L Glucose 171 H POC Glucose 186 H 05/30/20 05/30/20 07:50 11:47 Hct MCV RDW Carbon Dioxide Glucose POC Glucose 190 H 173 H Assessment and Plan 64 yo female with htn, dm, multiple strokes, who fell at home on the day of admission and fractured her right first metacarpal but witnessed with perseveration of speech transiently and with a noted unsteady gait with her walk er. PLAN 1. Acute Ischemic Stroke (thalamic): ASA 325 mg PO qday, Plavix 75 mg po qday x 21 days; +acute thalamic infarction on MRI Brain w/o contrast, unremarkable TTEcho & CUS; check LDL/HgbA1C/TSH-T4, baseline EKG; telemetry, SBP goal 160-200 mmHg and DBP 80-100 mmHg for 48 hrs. Statin therapy for a goal LDL of 70, when patient passes swallow evaluation. PT/OT/ST/Swallow evaluation. Long-term risk-factor modification, including a strict diet/exercise regimen for secondary stroke prophylaxis. 2. Fall - trauma evaluation per primary team. 3. Hypertension - permissive htn for 48 hours. 4. Diabetes Mellitus - maintain euglycemia. 5. Recommend followup with Stroke Neurology in 4 weeks. Neurology will signoff. Naveen Acosta MD Neurology
--- NOTE | 2020-05-30 18:58 | Event Note ---
64-year-old female with COPD, CVA, lung cancer, diabetes mellitus, tobacco abuse and hypertension presenting to the emergency room on 05/30 with a complaint of unsteady gait which resulted in a fall with mild neck pain and right hand/wrist pain. She stated that she fell going up the stairs around 0200 on 05/30 and hit her head but denies any headache or loss of consciousness. Work-up in the emergency department revealed a possible nondisplaced fracture of the fourth metacarpal of the right hand and a CT scan of the head and cervical spine were unremarkable. Patient is being worked up for a CVA and neurology was consulted. PT/ST/OT was consulted. Neurology suggested MRI brain with and without contrast, CTA head and neck and a TTE. An MRI brain and TTE were conducted, findings below. PT/OT recommend home health PT and home health OT. Home medications have been reconciled. She has been started on a statin, beta- darvin, aspirin therapy. We will continue to monitor 05/29 CT head shows no acute intracranial abnormality, generalized cerebral volume loss and sequela of chronic microvascular ischemia, age indeterminate lacunar type infarcts in the bilateral basal ganglia worse on the left. 05/29 hand x-ray shows small focal cortical area irregularity at the base of the first metacarpal posterior representing an acute nondisplaced fracture, mild to moderate degenerative changes. 05/29 right knee x-ray showed mild degenerative changes with no acute fracture or subluxation 05/29 CT C-spine shows C3-4 neuroforaminal narrowing and prominent posterior disc protrusion likely resulting in mild spinal canal stenosis. No fracture or traumatic malalignment of the C-spine, cervical spondylosis with moderate to severe neuroforaminal narrowing on the right at C3-4, posterior disc protrusion at C3-4 contributing to mild spinal canal narrowing 05/30 MRI brain w/o contrast shows no acute infarctions in the left thalamus. 2 small areas of punctuate restricted diffusion seen within the left thalamus, prior remote infarctions of the cerebral hemispheres, madie, basal ganglia and coronary radiata 05/30 bilateral carotid duplex shows no hemodynamically significant stenosis by NASCET criteria 05/30 YORDAN shows estimated EF of 55 to 60%, global left ventricular systolic function is normal, mild to moderate LVH, mild MR, mild to moderate TR, borderline pulmonary hypertension, RVSP calculated 25 mmHg with no patent foramen ovale demonstrated by agitated saline contrast.
[2020-05-30] MEDS ORDERED: traZODone 50 MG TAB PO SCH (22:00)
[2020-05-30] MEDS ORDERED: ENOXAPARIN 40 MG/0.4 ML INJ SUB-Q SCH (22:00)
[2020-05-31 05:29] LABS: Basophils % (Auto) 0.7 % (0.0-1.8); Eosinophils # (Auto) 0.1 K/mm3 (0.0-0.4); Eosinophils % (Auto) 1.6 % (0.0-4.3); Hemoglobin 12.3 gm/dl (10.1-14.3); Lymphocytes # (Auto) 3.1 K/mm3 (1.2-5.4); Lymphocytes % (Auto) 50.4 % (13.4-35.0); Mean Corpuscular HGB Conc 32 % (30-34); Mean Corpuscular Volume 96 fl (79-97); Monocytes # (Auto) 0.4 K/mm3 (0.0-0.8); Monocytes % (Auto) 7.3 % (0.0-7.3); Platelet Count 217 K/mm3 (140-440); Red Blood Count 3.95 M/mm3 (3.65-5.03); Red Cell Distribution Width 15.6 % (13.2-15.2)
[2020-05-31 05:38] LABS: INR 1.06 (0.87-1.13)
[2020-05-31 05:55] LABS: Chol/HDL Ratio 2.94 %
[2020-05-31] MEDS: INSULIN LISPRO 100 UNIT/ML VIAL 3 mL SUB-Q SCH ×3 (09:32→16:59)
[2020-05-31] MEDS: METOPROLOL TARTRATE 25 MG TAB PO SCH (09:34)
[2020-05-31] MEDS: ASPIRIN 325 MG TAB PO SCH (09:34)
[2020-05-31] MEDS: SPIRONOLACTONE 25 MG TAB PO SCH (09:35)
--- NOTE | 2020-05-31 09:56 | Progress Note ---
Assessment and Plan - Patient Problems (1) CVA (cerebral vascular accident) Current Visit: Yes Status: Acute Plan to address problem: 05/29 CT head shows no acute intracranial abnormality, generalized cerebral volume loss and sequela of chronic microvascular ischemia, age indeterminate lacunar type infarcts in the bilateral basal ganglia worse on the left. 05/30 bilateral carotid duplex shows no hemodynamically significant stenosis by NASCET criteria 05/30 YORDAN shows estimated EF of 55 to 60%, global left ventricular systolic function is normal, mild to moderate LVH, mild MR, mild to moderate TR, borderline pulmonary hypertension, RVSP calculated 25 mmHg with no patent foramen ovale demonstrated by agitated saline contrast. 05/30 MRI brain without contrast shows acute infarctions in the left thalamus. 2 small areas of punctuate restricted diffusion seen within the left thalamus, prior remote infarctions of the cerebral hemispheres, madie, basal ganglia and coronary radiata Neurology consulted 05/31 CTA head and neck pending ST/PT/OT consulted, PT and OT suggested home health PT and OT Aspirin and statin therapy Plavix 75 mg p.o. daily for 21 days per neurology Neurology recommend follow-up with stroke neurology in 4weeks and has signed off Aspiration, fall, seizure precautions Maintain ischemia Permissive hypertension for 24 hours, than target normotension (2) Right hand fracture Current Visit: Yes Status: Acute Qualifiers: Encounter type: initial encounter Plan to address problem: 05/29 hand x-ray shows small focal cortical area irregularity at the base of the first metacarpal posterior representing an acute nondisplaced fracture, mild to moderate degenerative changes. Patient has a splint in place that was placed in the ED As needed analgesics Supportive care (3) Fall Current Visit: Yes Status: Acute Plan to address problem: Patient presented status post fall of the stairs 05/29 hand x-ray shows small focal cortical area irregularity at the base of the first metacarpal posterior representing an acute nondisplaced fracture, mild to moderate degenerative changes. 05/29 right knee x-ray showed mild degenerative changes with no acute fracture or subluxation 05/29 CT C-spine shows C3-4 neuroforaminal narrowing and prominent posterior disc protrusion likely resulting in mild spinal canal stenosis. No fracture or traumatic malalignment of the C-spine, cervical spondylosis with moderate to severe neuroforaminal narrowing on the right at C3-4, posterior disc protrusion at C3-4 contributing to mild spinal canal narrowing PT and OT consulte; recommended home health PT and OT which have been ordered (4) Hypertension Current Visit: Yes Status: Chronic Plan to address problem: On 05/30 patient was restarted on home beta-darvin however she was noted to have sinus bradycardia overnight on 05/31 therefore she was started on an CHEN inhibitor Blood pressure monitor per protocol (5) Diabetes Current Visit: Yes Status: Chronic Plan to address problem: Holding home antidiabetic regimen while inpatient SSI Accu-Cheks AC at bedtime CC diet (6) DVT prophylaxis Current Visit: Yes Status: Acute Plan to address problem: Lovenox subcu SCDs to bilateral extremities while in bed History Interval history: 64-year-old female with COPD, CVA, lung cancer, diabetes mellitus, tobacco abuse and hypertension presenting to the emergency room on 05/30 with a complaint of unsteady gait which resulted in a fall with mild neck pain and right hand/wrist pain. She stated that she fell going up the stairs around 0200 on 05/30 and hit her head but denies any headache or loss of consciousness. Work-up in the emergency department revealed a possible nondisplaced fracture of the fourth metacarpal of the right hand and a CT scan of the head and cervical spine were unremarkable. Patient is being worked up for a CVA and neurology was consulted. This morning patient still has a left facial droop. She was noted to be sinus bradycardia overnight therefore her beta-darvin has been changed to an ACEi given her history of a CVA and DM. 05/30: PT/ST/OT was consulted who recommended home health PT and OT. Neurology suggested MRI brain with and without contrast, CTA head and neck and a TTE. An MRI brain and TTE were conducted, findings below. PT/OT recommend home health PT and home health OT. She has been started on a statin, beta-darvin, aspirin therapy. Hospitalist Physical - Constitutional Vitals: Temp Pulse Resp BP Pulse Ox 97.8 F 63 18 147/92 98 05/31/20 07:29 05/31/20 09:35 05/31/20 07:29 05/31/20 09:35 05/31/20 07:29 General appearance: Present: no acute distress, well-nourished - EENT Eyes: Present: PERRL, EOM intact ENT: hearing intact, clear oral mucosa - Neck Neck: Present: supple, normal ROM - Respiratory Respiratory effort: normal Respiratory: bilateral: CTA - Cardiovascular Rhythm: regular Heart Sounds: Present: S1 & S2. Absent: systolic murmur, diastolic murmur - Extremities Extremities: no ischemia, pulses intact, pulses symmetrical, No edema, normal te mperature, normal color Peripheral Pulses: within normal limits - Abdominal General gastrointestinal: soft, non-tender, non-distended, normal bowel sounds - Integumentary Integumentary: Present: clear, warm, dry - Psychiatric Psychiatric: cooperative - Neurologic Neurologic: no CNII-XII intact (left sided facial droop), focal deficits (slight drift to BUE), moves all extremities (weak x 4 extremities, 2-3/5) - Allied Health Allied health notes reviewed: nursing, PT, ST, OT Results - Labs CBC & Chem 7: 05/31/20 05:01 05/29/20 21:52 Labs: Laboratory Last Values WBC 6.2 K/mm3 (4.5-11.0) 05/31/20 05:01 RBC 3.95 M/mm3 (3.65-5.03) 05/31/20 05:01 Hgb 12.3 gm/dl (10.1-14.3) 05/31/20 05:01 Hct 38.0 % (30.3-42.9) 05/31/20 05:01 MCV 96 fl (79-97) 05/31/20 05:01 MCH 31 pg (28-32) 05/31/20 05:01 MCHC 32 % (30-34) 05/31/20 05:01 RDW 15.6 % (13.2-15.2) H 05/31/20 05:01 Plt Count 217 K/mm3 (140-440) 05/31/20 05:01 Lymph % (Auto) 50.4 % (13.4-35.0) H 05/31/20 05:01 Slope % (Auto) 7.3 % (0.0-7.3) 05/31/20 05:01 Eos % (Auto) 1.6 % (0.0-4.3) 05/31/20 05:01 Baso % (Auto) 0.7 % (0.0-1.8) 05/31/20 05:01 Lymph # (Auto) 3.1 K/mm3 (1.2-5.4) 05/31/20 05:01 Slope # (Auto) 0.4 K/mm3 (0.0-0.8) 05/31/20 05:01 Eos # (Auto) 0.1 K/mm3 (0.0-0.4) 05/31/20 05:01 Baso # (Auto) 0.0 K/mm3 (0.0-0.1) 05/31/20 05:01 Seg Neutrophils % 40.0 % (40.0-70.0) 05/31/20 05:01 Seg Neutrophils # 2.5 K/mm3 (1.8-7.7) 05/31/20 05:01 PT 13.9 Sec. (12.2-14.9) 05/31/20 05:01 INR 1.06 (0.87-1.13) 05/31/20 05:01 Sodium 141 mmol/L (137-145) 05/29/20 21:52 Potassium 4.8 mmol/L (3.6-5.0) 05/29/20 21:52 Chloride 103.5 mmol/L (98-107) 05/29/20 21:52 Carbon Dioxide 20 mmol/L (22-30) L 05/29/20 21:52 Anion Gap 22 mmol/L 05/29/20 21:52 BUN 17 mg/dL (7-17) 05/29/20 21:52 Creatinine 0.8 mg/dL (0.6-1.2) 05/29/20 21:52 Estimated GFR > 60 ml/min 05/29/20 21:52 BUN/Creatinine Ratio 21 % 05/29/20 21:52 Glucose 171 mg/dL (65-100) H 05/29/20 21:52 POC Glucose 247 mg/dL (70-105) H 05/31/20 07:49 Calcium 9.4 mg/dL (8.4-10.2) 05/29/20 21:52 Magnesium 1.90 mg/dL (1.7-2.3) 05/29/20 21:52 Total Bilirubin 0.60 mg/dL (0.1-1.2) 05/29/20 21:52 AST 24 units/L (5-40) 05/29/20 21:52 ALT 12 units/L (7-56) 05/29/20 21:52 Alkaline Phosphatase 86 units/L (35-129) 05/29/20 21:52 Total Protein 6.9 g/dL (6.3-8.2) 05/29/20 21:52 Albumin 4.1 g/dL (3.9-5) 05/29/20 21:52 Albumin/Globulin Ratio 1.5 % 05/29/20 21:52 Triglycerides 63 mg/dL (2-149) 05/31/20 05:01 Cholesterol 168 mg/dL (50-199) 05/31/20 05:01 LDL Cholesterol Direct 106 mg/dL (50-130) 05/31/20 05:01 HDL Cholesterol 57 mg/dL (40-59) 05/31/20 05:01 Cholesterol/HDL Ratio 2.94 % 05/31/20 05:01 Urine Color Yellow (Yellow) 05/29/20 23:02 Urine Turbidity Clear (Clear) 05/29/20 23:02 Urine pH 5.0 (5.0-7.0) 05/29/20 23:02 Ur Specific Criders 1.029 (1.003-1.030) 05/29/20 23:02 Urine Protein 30 mg/dl mg/dL (Negative) 05/29/20 23:02 Urine Glucose (UA) 150 mg/dL (Negative) 05/29/20 23:02 Urine Ketones Neg mg/dL (Negative) 05/29/20 23:02 Urine Blood Sm (Negative) 05/29/20 23:02 Urine Nitrite Neg (Negative) 05/29/20 23:02 Urine Bilirubin Neg (Negative) 05/29/20 23:02 Urine Urobilinogen 2.0 mg/dL (<2.0) 05/29/20 23:02 Ur Leukocyte Esterase Neg (Negative) 05/29/20 23:02 Urine WBC (Auto) 1.0 /HPF (0.0-6.0) 05/29/20 23:02 Urine RBC (Auto) 2.0 /HPF (0.0-6.0) 05/29/20 23:02 U Epithel Cells (Auto) 4.0 /HPF (0-13.0) 05/29/20 23:02 Urine Mucus 2+ /HPF 05/29/20 23:02 - Diagnostic Impressions Diagnostic Impressions: Echocardiogram 05/30/20 01:40 Transthoracic Echocardiogram Indication: Stroke BP: 164/67 HR: 59 Conclusions *Global left ventricular systolic function is normal. *The estimated ejection fraction is 55-60%. *Mild to moderate concentric left ventricular hypertrophy is observed. *There is mild mitral regurgitation. *There is mild to moderate tricuspid regurgitation. *There is evidence of borderline pulmonary hypertension. *The right ventricular systolic pressure is calculated at 25 mmHg. *A patent foramen ovale is not demonstrated by agitated saline contrast. Findings Left Ventricle: The left ventricular chamber size is normal. Mild to moderate concentric left ventricular hypertrophy is observed. Global left ventricular systolic function is normal. The estimated ejection fraction is 55-60%. Left Atrium: The left atrial chamber size is normal. Right Ventricle: The right ventricular cavity size is normal. The right ventricular global systolic function is normal. Right Atrium: The right atrial cavity size is normal. A patent foramen ovale is not demonstrated by agitated saline contrast. Aortic Valve: The aortic valve is trileaflet. There is no evidence of aortic regurgitation. There is no evidence of aortic stenosis. Mitral Valve: The mitral valve leaflets are mildly thickened. There is mild mitral regurgitation. There is no evidence of mitral stenosis. Tricuspid Valve: There is mild to moderate tricuspid regurgitation. The right ventricular systolic pressure is calculated at 25 mmHg. There is evidence of borderline pulmonary hypertension. Pulmonic Valve: There is trace pulmonic regurgitation. Pericardium: There is no pericardial effusion. Aorta: There is no dilatation of the ascending aorta. There is no dilatation of the aortic root. Venous: The inferior vena cava appears normal in size. Contrast: Intravenous agitated saline contrast was used to assess intracardiac shunting. Measurements Chambers 2D Name Value Normal Range IVSd (2D) 1.02 cm (0.6 - 1.1) LVPWd (2D) 1.01 cm (0.6 - 1.1) LVIDd (2D) 4.01 cm (3.7 - 5.6) LVIDs (2D) 2.75 cm (2 - 3.8) LV FS (2D) 31.49 % - EF Teichholz (2D) 59.96 % - Ao root diameter (2D) 3 cm (2 - 3.7) Volumes/Mass Name Value Normal Range LA ESV SP 4CH (A/L) 21.56 ml - LA ESV SP 2CH (A/L) 27.77 ml - LA ESV BP (A/L) 26.47 ml - LA ESV SP 4CH (MOD) 20.18 ml - LA ESV SP 2CH (MOD) 26.71 ml - Diastolic/Systolic Function Name Value Normal Range MV E-wave Vmax 0.64 m/sec - MV deceleration time 228.14 msec - MV A-wave Vmax 0.82 m/sec - MV E:A ratio 0.78 ratio - Aortic Valve Name Value Normal Range AV Vmax 1.65 m/sec - AV VTI 34.01 cm - AV peak gradient 10.93 mmHg - AV mean gradient 5.29 mmHg - LVOT diameter 2.07 cm - LVOT Vmax 1.03 m/sec - LVOT VTI 20.78 cm - LVOT peak gradient 4.25 mmHg - LVOT mean gradient 1.85 mmHg - SV LVOT 69.91 ml - BHAVESH (continuity Vmax) 2.1 cm2 - BHAVESH (continuity VTI) 2.06 cm2 - Tricuspid Valve Name Value Normal Range TR Vmax 2.64 m/sec - TR peak gradient 27.82 mmHg - RVSP 25 mmHg - Pulmonic Valve/Qp:Qs Name Value Normal Range PV Vmax 0.96 m/sec - PV peak gradient 3.66 mmHg - PV acceleration time 95.15 msec - Naidu/IV: Voiding Method Toilet IV Catheter Type [Left INT / Saline Lock Antecubital] IV Catheter Type [Left Hand] INT / Saline Lock Active Medications - Current Medications Current Medications: Generic Name Dose Route Start Last Admin Trade Name Freq PRN Reason Stop Dose Admin Acetaminophen 650 mg 05/30/20 01:16 05/30/20 21:18 Tylenol PO 650 mg Q4H PRN Administration Pain MILD(1-3)/Fever >100.5/DENT Aspirin 325 mg 05/30/20 10:00 05/31/20 09:34 Aspirin PO 325 mg QDAY MIGNON Administration Atorvastatin Calcium 40 mg 05/30/20 22:00 05/30/20 21:18 Lipitor PO 40 mg QHS MIGNON Administration Bisacodyl 10 mg 05/30/20 01:16 Dulcolax RI QDAY PRN Constipation Dextrose 0 ml 10/22/20 01:16 D50w (25gm) Syringe IV Q30MIN PRN Hypoglycemia Protocol Enoxaparin Sodium 40 mg 05/30/20 22:00 05/30/20 21:18 Enoxaparin SUB-Q 40 mg QDAY@2200 MIGNON Administration Protocol Insulin Human Lispro 0 unit 05/30/20 07:30 05/31/20 09:32 Humalog SUB-Q 3 unit ACHS MIGNON Administration Protocol Lisinopril 5 mg 06/01/20 10:00 Zestril PO QDAY MIGNON Magnesium Hydroxide 30 ml 05/30/20 01:30 Milk Of Magnesia PO Q4H PRN Constipation Metoclopramide HCl 10 mg 05/30/20 01:16 Reglan PO Q6H PRN Nausea And Vomiting Morphine Sulfate 2 mg 05/30/20 01:30 Morphine IV Q4H PRN Pain, Moderate (4-6) Ondansetron HCl 4 mg 05/30/20 01:16 Zofran IV Q8H PRN Nausea And Vomiting Promethazine HCl 25 mg 05/30/20 01:16 Phenergan RI Q6H PRN Nausea And Vomiting Sodium Chloride 10 ml 05/30/20 10:00 05/31/20 09:36 Sodium Chloride Flush Syringe 10 Ml IV 10 ml BID MIGNON Administration Sodium Chloride 10 ml 05/30/20 01:16 Sodium Chloride Flush Syringe 10 Ml IV PRN PRN LINE FLUSH Trazodone HCl 50 mg 05/30/20 22:00 05/30/20 21:18 Desyrel PO 50 mg QHS MIGNON Administration Nutrition/Malnutrition Assess - Dietary Evaluation Nutrition/Malnutrition Findings: Nutrition Notes Start: 05/30/20 14:13 Freq: Status: Active Protocol: Document 05/30/20 14:13 AL (Rec: 05/30/20 14:24 AL [email or web address]) Co-Sign 05/30/20 14:13 MK Nutrition Notes Need for Assessment generated from: MD Order,Education Initial or Follow up Assessment Current Diagnosis COPD,Diabetes,Hypertension, Stroke Other Pertinent Diagnosis Lung Cancer, hand fracture Current Diet Cardiac/Consistent CHO Labs/Tests Reviewed Pertinent Medications Reviewed Height 5 ft 1 in Weight 62 kg [place] Body Weight (kg) 47.72 BMI 25.8 Intake Prior to Admission Good Weight Status Overweight Subjective/Other Information MD consult for diet education. Pt. states that appetite is normal. RD spoke to pt as she was eating lunch. At home, typical breakfast consists of eggs & a roll, cereal and milk , coffee. RD consulted pt on ways to manage BG and maintain heart health. Percent of energy/protein needs met: 100%/100% Burn Absent Trauma Absent Current % PO Good (75-100%) Minimum of two criteria No #1 Nutrition Diagnosis Food and nutrition-related knowledge deficit Etiology Diabetes, COPD, CVA As Evidenced by Signs and Symptoms pt. requested diet education and asked questions about diet . Is patient on ventilator? No Is Patient Ambulatory and/or Out of Bed Yes REE-(Emery-St. Jeor-ambulatory/OOB) [ [id number] [id number]] Calculation [facility] Additional Notes Pro: 62-75 g Pro/day(1-1.2 g/ kg) Fluid: 1 ml/kcal Nutrition Intervention Change Diet Order: Continue Teaching Recipient Patient Learning Readiness Good Teaching Methods Discussion,Handout Response to Teaching Verbalize understanding Education Handouts Provided Heart Healthy Nutrition Therapy Barriers to Learning No Barriers RD phone number provided Yes Patient aware of follow up options Yes Goal #1 Meet 75% of total energy and protein needs Revisit per MD consult or patient Sign Off request:
[2020-05-31] MEDS ORDERED: CLOPIDOGREL 75 MG TAB PO SCH (11:00)
[2020-05-31 13:16] LABS: BUN/Creatinine Ratio 24; Blood Urea Nitrogen 22 mg/dL (7-17); Calcium 9.1 mg/dL (8.4-10.2); Hemolysis Index 4
--- NOTE | 2020-05-31 15:38 | Discharge Summary ---
<MITCHELLAnnieANA ROSAMina - Last Filed: 05/31/20 15:39> Providers - Providers Date of Admission: 05/30/20 00:58 Date of discharge: 05/31/20 Attending physician: JADE FERMIN 05/30/20 01:16 Consult to Dietitian/Nutrition [CONS] Routine Physician Instructions: Reason For Exam: Reason for Consult: Diet education Consult to Dietitian/Nutrition [CONS] Routine Physician Instructions: Reason For Exam: Reason for Consult: Nutrition Recommendations Reason for Consult: Diet education Occupational Therapy Evaluate and Treat [CONS] Routine Comment: Reason For Exam: Neuro deficits Physical Therapy Evaluation and Treat [CONS] Routine Comment: Reason For Exam: Neuro deficits 05/30/20 01:30 Consult to Physician [CONS] Routine Comment: Consulting Provider: NEDRA LARSEN Physician Instructions: Reason For Exam: Unsteady gait R/O CVA Primary care physician: BARREL REAMER Hospitalization Condition: Stable Pertinent studies: 05/29 CT head shows no acute intracranial abnormality, generalized cerebral volume loss and sequela of chronic microvascular ischemia, age indeterminate lacunar type infarcts in the bilateral basal ganglia worse on the left. 05/30 bilateral carotid duplex shows no hemodynamically significant stenosis by NASCET criteria 05/30 YORDAN shows estimated EF of 55 to 60%, global left ventricular systolic function is normal, mild to moderate LVH, mild MR, mild to moderate TR, borderline pulmonary hypertension, RVSP calculated 25 mmHg with no patent foramen ovale demonstrated by agitated saline contrast. 05/30 MRI brain without contrast shows acute infarctions in the left thalamus. 2 small areas of punctuate restricted diffusion seen within the left thalamus, prior remote infarctions of the cerebral hemispheres, madie, basal ganglia and coronary radiata Hospital course: 64-year-old female with COPD, CVA, lung cancer, diabetes mellitus, tobacco abuse and hypertension presenting to the emergency room on 05/30 with a complaint of unsteady gait which resulted in a fall with mild neck pain and right hand/wrist pain. She stated that she fell going up the stairs around 0200 on 05/30 and hit her head but denies any headache or loss of consciousness. Work-up in the emergency department revealed a possible nondisplaced fracture of the fourth metacarpal of the right hand and a CT scan of the head and cervical spine were unremarkable. Patient was worked up for a CVA and neurology was consulted. On 05/30 PT/ST/OT was consulted who recommended home health PT and OT. Neurology suggested MRI brain with and without contrast, CTA head and neck and a TTE. An MRI brain and TTE were conducted on 05/30. She has been started on a statin, beta-darvin, aspirin therapy. She was noted to be sinus bradycardia overnight therefore her beta-darvin has been changed to an ACEi given her history of a CVA and DM. She went to follow-up with her primary care physician within 1 to 2 weeks of discharge. Neurology has recommended to follow-up with a stroke neurologist within 4 weeks after discharge. Home health has been ordered for PT, OT, nurse and aide. She will be discharged with Plavix and 5 mg p.o. daily for 21 days, CHEN inhibitor, aspirin and a statin. She will be discharged with a splint to her right hand. (1) CVA (cerebral vascular accident) Current Visit: Yes Status: Acute Plan to address problem: 05/29 CT head shows no acute intracranial abnormality, generalized cerebral volume loss and sequela of chronic microvascular ischemia, age indeterminate lacunar type infarcts in the bilateral basal ganglia worse on the left. 05/30 bilateral carotid duplex shows no hemodynamically significant stenosis by NASCET criteria 05/30 YORDAN shows estimated EF of 55 to 60%, global left ventricular systolic function is normal, mild to moderate LVH, mild MR, mild to moderate TR, borderline pulmonary hypertension, RVSP calculated 25 mmHg with no patent foramen ovale demonstrated by agitated saline contrast. 05/30 MRI brain without contrast shows acute infarctions in the left thalamus. 2 small areas of punctuate restricted diffusion seen within the left thalamus, prior remote infarctions of the cerebral hemispheres, madie, basal ganglia and coronary radiata Neurology consulted 05/31 CTA head and neck pending ST/PT/OT consulted, PT and OT suggested home health PT and OT Aspirin and statin therapy Plavix 75 mg p.o. daily for 21 days per neurology Neurology recommend follow-up with stroke neurology in 4weeks and has signed off Aspiration, fall, seizure precautions Maintain ischemia Permissive hypertension for 24 hours, than target normotension (2) Right hand fracture Current Visit: Yes Status: Acute Qualifiers: Encounter type: initial encounter Plan to address problem: 05/29 hand x-ray shows small focal cortical area irregularity at the base of the first metacarpal posterior representing an acute nondisplaced fracture, mild to moderate degenerative changes. Patient has a splint in place that was placed in the ED As needed analgesics Supportive care (3) Fall Current Visit: Yes Status: Acute Plan to address problem: Patient presented status post fall of the stairs 05/29 hand x-ray shows small focal cortical area irregularity at the base of the first metacarpal posterior representing an acute nondisplaced fracture, mild to moderate degenerative changes. 05/29 right knee x-ray showed mild degenerative changes with no acute fracture or subluxation 05/29 CT C-spine shows C3-4 neuroforaminal narrowing and prominent posterior disc protrusion likely resulting in mild spinal canal stenosis. No fracture or traumatic malalignment of the C-spine, cervical spondylosis with moderate to severe neuroforaminal narrowing on the right at C3-4, posterior disc protrusion at C3-4 contributing to mild spinal canal narrowing PT and OT consulte; recommended home health PT and OT which have been ordered (4) Hypertension Current Visit: Yes Status: Chronic Plan to address problem: On 05/30 patient was restarted on home beta-darvin however she was noted to have sinus bradycardia overnight on 05/31 therefore she was started on an CHEN inhibitor Blood pressure monitor per primary care physician (5) Diabetes Current Visit: Yes Status: Chronic Plan to address problem: Resume home antidiabetic regimen Accu-Cheks per PCP instructions Continue a carb controlled diet with a low-fat Disposition: [id number] HOME UNDER HOME [facility] Core Measure Documentation - Palliative Care Palliative Care/ Comfort Measures: Not Applicable - Core Measures Any of the following diagnoses?: stroke - Stroke Discharge Requirements Statin for LDL = or >70 mg/dl on DC: Yes Anticoag for atrial fib/atrial flutter: Not Applicable Antithrombotic for ischemic stroke: Yes Exam - Constitutional Vitals: Temp Pulse Resp BP Pulse Ox 97.8 F 66 18 139/76 98 05/31/20 11:31 05/31/20 11:31 05/31/20 11:31 05/31/20 11:31 05/31/20 11:31 Plan Activity: advance as tolerated Diet: low fat, low salt, diabetic, low carbohydrate Special Instructions: record daily BP diary, record blood sugar diary, physical therapy, occupational therapy, home health RN Additional Instructions: Contact your primary care physician or report to nearest emergency department if experience worsening symptoms. You will be discharged with home health PT and OT, home health RN and aide. You will need to follow-up with stroke neurologist within 4 weeks. Follow up with: MACK CLANCY MD [Primary Care Provider] - 3-5 Days AMOS PETER MD [Staff Physician] - 7 Days <JADE FERMIN - Last Filed: 05/31/20 17:01> Providers - Providers Date of Admission: 05/30/20 00:58 Attending physician: JADE FERMIN 05/30/20 01:16 Consult to Dietitian/Nutrition [CONS] Routine Physician Instructions: Reason For Exam: Reason for Consult: Diet education Consult to Dietitian/Nutrition [CONS] Routine Physician Instructions: Reason For Exam: Reason for Consult: Nutrition Recommendations Reason for Consult: Diet education Occupational Therapy Evaluate and Treat [CONS] Routine Comment: Reason For Exam: Neuro deficits Physical Therapy Evaluation and Treat [CONS] Routine Comment: Reason For Exam: Neuro deficits 05/30/20 01:30 Consult to Physician [CONS] Routine Comment: Consulting Provider: NEDRA LARSEN Physician Instructions: Reason For Exam: Unsteady gait R/O CVA Primary care physician: BARREL REAMER Exam - Constitutional Vitals: Temp Pulse Resp BP Pulse Ox 97.8 F 66 18 139/76 98 05/31/20 11:31 05/31/20 11:31 05/31/20 11:31 05/31/20 11:31 05/31/20 11:31
--- NOTE | 2020-05-31 16:50 | Cat Scan Report ---
CTA HEAD WITH CONTRAST HISTORY: Stroke COMPARISON: None. TECHNIQUE: Routine non-contrast CT Head, CTA of the head and post-contrast CT Head are performed. 3-D /MIP reformats postprocessed. All CT scans at this location are performed using CT dose reduction for ALARA by means of automated exposure control CONTRAST: 100 ml of Omnipaque 350 FINDINGS: CTA Head: Intracranial vertebral arteries: No significant abnormality. Basilar artery: No significant abnormality. Posterior cerebral arteries: No significant abnormality. Intracranial internal carotid arteries: No significant abnormality. Anterior cerebral arteries: No significant abnormality. Middle cerebral arteries: No significant abnormality. Dural venous sinuses:Not optimally opacified. No significant abnormality. Additional findings: None. IMPRESSION: 1. No significant abnormality. Signer Name: Dee Leavitt MD Signed: 05/31/2020 4:46 PM Workstation Name: [id number]
[2020-05-31 17:31] VITALS: BP 145/82
--- NOTE | 2020-05-31 17:57 | Cat Scan Report ---
CTA NECK WITH CONTRAST HISTORY: Stroke COMPARISON: None. TECHNIQUE: Routine CTA of the neck was performed. 3-D/MIP reformats were postprocessed. Percentage s tenosis is determined by direct quantitative measurements of diseased internal carotid artery diamete r compared with normal distal internal carotid artery reference segments or by criteria similar to NA SCET where applicable.All CT scans at this location are performed using CT dose reduction for ALARA b y means of automated exposure control CONTRAST: 100 ml of Omnipaque 350 FINDINGS: Aortic arch: No significant abnormality. Cervical vertebral arteries: No significant abnormality. Common carotid arteries: No significant abnormality. Carotid bifurcations: Normal Cervical internal carotid arteries: No significant abnormality. Additional findings: 8 mm sized nodule in the right upper lobe IMPRESSION: Normal carotid bifurcations Incidental millimeters sized nodule in the right upper lobe of the lung INCIDENTAL PULMONARY NODULE RECOMMENDATIONS Note These recommendations do not apply to lung cancer screening, patients with immunosuppression, o r patients with known primary cancer. Note Newly detected indeterminate nodule in persons 35 years of age or older. Persons under the age of 35 should not receive follow-up unless there is a known primary cancer. Low Risk Patient -- minimal or absent history of smoking and of other known risk factors. High Risk Patient -- history of smoking or of other known risk factors. Nodule dimensions are average of long and short axes, rounded to the nearest millimeter. Based on 2017 Fleischner Society Guidelines found in Radiology 2017 284:228-243. [email or web address] Signer Name: Dee Leavitt MD Signed: 05/31/2020 5:53 PM Workstation Name: [id number]
[2020-06-01] MEDS ORDERED: LISINOPRIL 5 MG TAB PO SCH (10:00)
== END 2020-05-31 20:45 | disposition home health service (06) ==
LOC: ED 19:14 → 4A 05-30 00:58
PROVIDERS: ADMIT Internal Medicine Geriatric Medicine; ATTEND Internal Medicine
DX: I63.9 Cerebral infarction, unspecified (principal); S62.91XA Unspecified fracture of right hand, initial encounter for closed fracture; R26.81 Unsteadiness on feet; I10 Essential (primary) hypertension; F17.210 Nicotine dependence, cigarettes, uncomplicated; E11.9 Type 2 diabetes mellitus without complications; J44.9 Chronic obstructive pulmonary disease, unspecified; R29.704 NIHSS score 4; Z85.118 Personal history of other malignant neoplasm of bronchus and lung; Z90.710 Acquired absence of both cervix and uterus; Z79.4 Long term (current) use of insulin; Z91.81 History of falling; Z79.899 Other long term (current) drug therapy; W19.XXXA Unspecified fall, initial encounter; Y93.9 Activity, unspecified; Y92.89 Other specified places as the place of occurrence of the external cause; Y99.8 Other external cause status
CPT/HCPCS: 36415; 70450; 70496; 70498; 70551; 72125; 73110; 73130; 73562; 80048; 80053; 80061; 81001; 82962; 83735; 85025; 85610; 93005; 93306; 93880; 96372; 97162; 97166; 99285; 99406; A9270; G0378; J1650; Q9967